=== PATIENT | male | born 1995 | race African-American/Black ===

== ENCOUNTER → 2020-06-08 | Outpatient (CLI) | payer OTHER | LOC: MHCPAIN 13:53 | DX: M47.817 Spondylosis without myelopathy or radiculopathy, lumbosacral region (principal); M54.5 Low back pain; G89.29 Other chronic pain; M79.18 Myalgia, other site | CPT/HCPCS: G0463 ==

== ENCOUNTER → 2020-06-14 | Outpatient (CLI) | payer OTHER | LOC: MHCPAIN 14:57 | DX: M54.5 Low back pain (principal); M79.18 Myalgia, other site | CPT/HCPCS: J1040 ==

== ENCOUNTER → 2020-06-22 | Outpatient (CLI) | payer OTHER | LOC: MHCPAIN 15:46 | DX: M47.817 Spondylosis without myelopathy or radiculopathy, lumbosacral region (principal); M54.5 Low back pain; M53.3 Sacrococcygeal disorders, not elsewhere classified; G89.29 Other chronic pain | CPT/HCPCS: G0463 ==

== ENCOUNTER → 2020-10-27 | Outpatient (CLI) | payer OTHER | LOC: MHCPAIN 13:50 | DX: M47.817 Spondylosis without myelopathy or radiculopathy, lumbosacral region (principal); M53.3 Sacrococcygeal disorders, not elsewhere classified; G89.29 Other chronic pain | CPT/HCPCS: G0463 ==

== ENCOUNTER → 2020-11-04 | Outpatient (CLI) | payer OTHER | LOC: MHCPAIN 12:51 | DX: M47.817 Spondylosis without myelopathy or radiculopathy, lumbosacral region (principal); M54.5 Low back pain ==

== ENCOUNTER → 2020-12-02 | Outpatient (CLI) | payer OTHER | LOC: MHCPAIN 12:56 | DX: M47.817 Spondylosis without myelopathy or radiculopathy, lumbosacral region (principal); M54.5 Low back pain | CPT/HCPCS: G0463 ==

== ENCOUNTER → 2020-12-23 | Outpatient (CLI) | payer OTHER | LOC: MHCPAIN 07:40 | DX: M47.817 Spondylosis without myelopathy or radiculopathy, lumbosacral region (principal); M54.5 Low back pain; M53.3 Sacrococcygeal disorders, not elsewhere classified | CPT/HCPCS: G0463; J1100; J2250; J3010 ==

== ENCOUNTER → 2021-03-01 | Outpatient (CLI) | payer OTHER | LOC: MHCPAIN 14:36 | DX: M47.817 Spondylosis without myelopathy or radiculopathy, lumbosacral region (principal); M54.5 Low back pain; M53.3 Sacrococcygeal disorders, not elsewhere classified; G89.29 Other chronic pain | CPT/HCPCS: G0463 ==

== ENCOUNTER → 2021-03-07 | Outpatient (CLI) | payer OTHER | LOC: MHCPAIN 11:51 | DX: M47.817 Spondylosis without myelopathy or radiculopathy, lumbosacral region (principal); M54.5 Low back pain; M53.3 Sacrococcygeal disorders, not elsewhere classified ==

== ENCOUNTER → 2021-03-31 | Outpatient (CLI) | payer OTHER | LOC: MHCPAIN 10:31 | DX: M47.817 Spondylosis without myelopathy or radiculopathy, lumbosacral region (principal); M54.5 Low back pain; M53.3 Sacrococcygeal disorders, not elsewhere classified | CPT/HCPCS: G0463 ==

== ENCOUNTER → 2021-04-07 | Outpatient (CLI) | payer OTHER | LOC: MHCPAIN 08:32 | DX: M47.817 Spondylosis without myelopathy or radiculopathy, lumbosacral region (principal); M54.5 Low back pain; M53.3 Sacrococcygeal disorders, not elsewhere classified | CPT/HCPCS: G0463; J1100; J2250; J3010 ==